=== PATIENT | female | born 1940 | race Caucasian/White ===

== ENCOUNTER → 2017-01-19 | Outpatient (CLI) | payer OTHER, MEDICARE ==
[~2017-01-19] MED LIST: ACET-1600 PO; ASPI-515 PO; ASPI325T80 PO; ATEN25TA PO; ATEN50TA41 PO; ATENOLOL PO; BIOT10003 PO; CA C1TAB63 PO; CELEBREX PO; CLOB15CR19 TP; ESTR42.53 TP; FLUO20CA19 PO; FLUO40CA2 PO; HYDR; HYDR473S51 PO; LEVO100T5 PO; LOPE2CAP3 PO; LOSA100T6 PO; LOSA1TAB16 PO; LUTE20CA PO; OMEP-110 PO; OMEP40CA6 PO; PRAV40TA2 PO; WILL BRING LIST
[2017-01-19 10:06] LABS: BLOOD UREA NITROGEN 27 mg/dL (7-18)
[2017-01-19 10:09] LABS: ASPARTATE AMINO TRANSFERASE 17 U/L (15-37)
== END | disposition home or self-care (01) ==
LOC: LAB 09:38
PROVIDERS: ATTEND Internal Medicine
DX: I13.10 Hypertensive heart and chronic kidney disease without heart failure, with stage 1 through stage 4 chronic kidney disease, or unspecified chronic kidney disease (principal); N18.3 Chronic kidney disease, stage 3 (moderate); E03.9 Hypothyroidism, unspecified; E78.2 Mixed hyperlipidemia
CPT/HCPCS: 36415; 80053

== ENCOUNTER → 2017-03-31 | Outpatient (CLI) | payer OTHER, MEDICARE | END | disposition home or self-care (01) | LOC: CFH 10:52 | PROVIDERS: ATTEND Thoracic Surgery (Cardiothoracic Vascular Surgery) | DX: Z09 Encounter for follow-up examination after completed treatment for conditions other than malignant neoplasm (principal); K22.4 Dyskinesia of esophagus; Z98.890 Other specified postprocedural states | CPT/HCPCS: 74241 ==

== ENCOUNTER 2017-05-14 22:55 | Emergency (ER) | payer MEDICARE, OTHER ==
[~2017-05-14] VITALS: Ht 154.9 cm; Wt 75.4 kg
[2017-05-14] MEDS ORDERED: SODIUM CHLORIDE 0.9% 1,000ML IVBOLUS ONE (23:30)
[2017-05-14] MEDS ORDERED: FAMOTIDINE 20 MG/2 ML IVP ONE (23:30)
[2017-05-14] MEDS ORDERED: ONDANSETRON 2MG/ML, 2ML IVPush ONE (23:30)
[2017-05-14] MEDS ORDERED: FAMOTIDINE 20 MG/2 ML ONE (23:42)
[2017-05-14] MEDS ORDERED: ONDANSETRON 2MG/ML, 2ML ONE (23:42)
[2017-05-15 00:02] LABS: ASPARTATE AMINO TRANSFERASE 20 U/L (15-37); BLOOD UREA NITROGEN 15 mg/dL (7-18)
[2017-05-15 00:07] LABS: IS PT STATUS REG ER OR PRE ER? YES
[2017-05-15] MEDS ORDERED: PROMETHAZINE 25 MG/ML, 1ML ONE (01:17)
[2017-05-15] MEDS ORDERED: PROMETHAZINE 25 MG/ML, 1ML IM ONE (01:30)
[2017-05-15 01:55] VITALS: BP 129/69
== END 2017-05-15 01:49 | disposition home or self-care (01) ==
LOC: ED 23:54
DX: R11.0 Nausea (principal); R53.1 Weakness; E78.5 Hyperlipidemia, unspecified; I10 Essential (primary) hypertension; K21.9 Gastro-esophageal reflux disease without esophagitis; M19.90 Unspecified osteoarthritis, unspecified site; Z86.73 Personal history of transient ischemic attack (TIA), and cerebral infarction without residual deficits
CPT/HCPCS: 36415; 74020; 80053; 83690; 84484; 85025; 96361; 96372; 96374; 96375; 99285; J2405; J2550; J7030; S0028

== ENCOUNTER → 2017-10-27 | Outpatient (CLI) | payer MEDICARE ==
[~2017-10-27] MED LIST changes: -BIOT10003 PO; +BIOT10005 PO; +GADOBUTROL 10 MMOL/10 ML VIAL ONE; -LOSA1TAB16 PO; +LOSA1TAB19 PO; -LUTE20CA PO; +LUTE20CA2 PO
== END | disposition home or self-care (01) ==
LOC: CFH 13:06
PROVIDERS: ATTEND Colon & Rectal Surgery
DX: D25.0 Submucous leiomyoma of uterus (principal); N89.8 Other specified noninflammatory disorders of vagina; K57.30 Diverticulosis of large intestine without perforation or abscess without bleeding
CPT/HCPCS: 72197; A9585

== ENCOUNTER → 2017-11-26 | Outpatient (CLI) | payer MEDICARE ==
[~2017-11-26] MED LIST changes: +CITRACAL PO; +FIBER TAB PO; -GADOBUTROL 10 MMOL/10 ML VIAL ONE
== END | disposition home or self-care (01) ==
LOC: STAR 11:57
PROVIDERS: ATTEND Colon & Rectal Surgery
DX: Z01.818 Encounter for other preprocedural examination (principal)
CPT/HCPCS: 93005

== ENCOUNTER → 2018-12-10 | Outpatient (CLI) | payer MEDICARE ==
[~2018-12-10] MED LIST changes: +LOSA100T14 PO; -LOSA100T6 PO
== END | disposition home or self-care (01) ==
LOC: CFH 08:00
PROVIDERS: ATTEND Internal Medicine Cardiovascular Disease
DX: I34.0 Nonrheumatic mitral (valve) insufficiency (principal); I70.8 Atherosclerosis of other arteries; I51.89 Other ill-defined heart diseases
CPT/HCPCS: 75571; 93306

== ENCOUNTER 2020-04-02 12:36 | Outpatient (CLI) | payer MEDICARE ==
[~2020-04-02 12:36] MED LIST changes: +OMEP40CA42 PO; -OMEP40CA6 PO
[2020-04-02 14:01] LABS: ALANINE AMINOTRANSFERASE 27 U/L (12-78); ANION GAP 6 mmol/L (5-15); CALCIUM 9.5 mg/dL (8.5-10.1); CHLORIDE 108 mmol/L (98-107); CREATININE 1.05 mg/dL (0.55-1.02)
[2020-04-02 14:03] LABS: ALKALINE PHOSPHATASE 69 U/L (45-117); BILIRUBIN,TOTAL 0.6 mg/dL (0.2-1.0); TOTAL PROTEIN 7.4 g/dL (6.4-8.2)
[2020-04-02] MEDS ORDERED: METO25TA35 PO (14:37)
== END 2020-04-02 23:59 | disposition home or self-care (01) ==
LOC: STAR 12:36
PROVIDERS: ATTEND Obstetrics & Gynecology Female Pelvic Medicine and Reconstructive Surgery
DX: Z01.818 Encounter for other preprocedural examination (principal); N81.4 Uterovaginal prolapse, unspecified; R93.89 Abnormal findings on diagnostic imaging of other specified body structures; R94.31 Abnormal electrocardiogram [ECG] [EKG]
CPT/HCPCS: 36415; 80053; 93005; U0001-CS

== ENCOUNTER 2020-04-09 10:29 | Day surgery (SDC) | payer MEDICARE ==
[~2020-04-09] VITALS: Ht 154.9 cm; Wt 90.1 kg
[~2020-04-09 10:29] MED LIST changes: +BUPIVACAINE/PF-EPI 0.25% 1:200K ONE; +METO25TA35 PO
[2020-04-09] MEDS ORDERED: FENTANYL PF 100 MCG/2ML ONE ×2 (10:32→12:37)
[2020-04-09] MEDS ORDERED: MIDAZOLAM 1 MG/ML, 2ML ONE (10:32)
[2020-04-09] MEDS ORDERED: LACTATED RINGERS 1,000 ML IV SCH ×2 (10:48→15:00)
[2020-04-09 10:50] VITALS: BP 171/77
[2020-04-09] MEDS ORDERED: CHLORHEXIDINE 15 ML UDC MM ONE (11:00)
[2020-04-09] MEDS ORDERED: SUGAMMADEX 200 MG/2 ML IVPush ONE (11:30)
[2020-04-09] MEDS ORDERED: CEFAZOLIN 1,000 MG ONE (11:30)
[2020-04-09] MEDS ORDERED: FENTANYL PF 100 MCG/2ML IV PRN (11:30)
[2020-04-09] MEDS ORDERED: ROCURONIUM 10MG/ML,5ML ONE (11:30)
[2020-04-09] MEDS ORDERED: LIDOCAINE-MPF 2% ,5ML ONE (11:30)
[2020-04-09] MEDS ORDERED: VASOPRESSIN 20 UNIT/ML, 1ML ONE (11:30)
[2020-04-09] MEDS ORDERED: ONDANSETRON 2MG/ML, 2ML ONE (11:30)
[2020-04-09] MEDS ORDERED: EPHEDRINE 50 MG/ML, 1ML ONE (11:30)
[2020-04-09] MEDS ORDERED: OXYcodone 5 MG/5 ML ORAL.SOL UDC PO PRN (11:30)
[2020-04-09] MEDS ORDERED: DEXAMETHASONE 4 MG/ML, 1ML ONE (11:30)
[2020-04-09] MEDS ORDERED: MEPERIDINE/PF 25MG/0.5ML IVPush PRN (11:30)
[2020-04-09] MEDS ORDERED: PROPOFOL 10 MG/ML, 20ML ONE (11:30)
[2020-04-09] MEDS ORDERED: SUCCINYLCHOLINE 20 MG/ML, 10ML ONE (11:30)
[2020-04-09] MEDS ORDERED: HYDROmorphone 1 MG/ML, 1ML INJ IVPush PRN (11:30)
[2020-04-09] MEDS ORDERED: PROMETHAZINE 25 MG/ML, 1ML IVPush PRN (11:30)
[2020-04-09] MEDS ORDERED: INDIGO CARMINE 0.8%, 5ML ONE (13:03)
[2020-04-09] MEDS ORDERED: PROMETHAZINE 25 MG SUPP PR ONE (14:00)
[2020-04-09] MEDS ORDERED: OXYcodone/APAP 5/325MG TABLET PO PRN (14:00)
[2020-04-09] MEDS ORDERED: ONDANSETRON 2MG/ML, 2ML IVPush PRN (14:00)
[2020-04-09] MEDS ORDERED: KETOROLAC 30 MG/1 ML IVPush PRN (14:00)
== END 2020-04-09 18:15 | disposition home or self-care (01) ==
LOC: OUT 10:29
PROVIDERS: ATTEND Obstetrics & Gynecology Female Pelvic Medicine and Reconstructive Surgery
DX: N89.8 Other specified noninflammatory disorders of vagina (principal); R15.9 Full incontinence of feces; N87.9 Dysplasia of cervix uteri, unspecified; D25.1 Intramural leiomyoma of uterus; N84.0 Polyp of corpus uteri; N73.6 Female pelvic peritoneal adhesions (postinfective); R35.0 Frequency of micturition; I10 Essential (primary) hypertension; F32.9 Major depressive disorder, single episode, unspecified; K91.1 Postgastric surgery syndromes; G43.909 Migraine, unspecified, not intractable, without status migrainosus; F41.9 Anxiety disorder, unspecified; E03.9 Hypothyroidism, unspecified; E66.9 Obesity, unspecified; Z79.890 Hormone replacement therapy; Z79.899 Other long term (current) drug therapy; Z88.5 Allergy status to narcotic agent; Z87.442 Personal history of urinary calculi; Z86.73 Personal history of transient ischemic attack (TIA), and cerebral infarction without residual deficits; Z98.890 Other specified postprocedural states; Z83.3 Family history of diabetes mellitus; Z82.49 Family history of ischemic heart disease and other diseases of the circulatory system; Z80.0 Family history of malignant neoplasm of digestive organs
CPT/HCPCS: 57135; 58260; 88304; 88307; J0330; J0690; J1100; J2405; J2704; J3010; J7120; J2250

== ENCOUNTER → 2021-03-29 | Outpatient (CLI) | payer MEDICARE ==
[~2021-03-29] MED LIST changes: -ASPI-515 PO; +ASPI-963 PO; -BUPIVACAINE/PF-EPI 0.25% 1:200K ONE
== END | disposition home or self-care (01) ==
LOC: RAD 07:27
PROVIDERS: ATTEND Physician Assistant
DX: K44.9 Diaphragmatic hernia without obstruction or gangrene (principal); R11.2 Nausea with vomiting, unspecified
CPT/HCPCS: 74240; 74248